=== PATIENT | male | born 1965 | race Caucasian/White ===

== ENCOUNTER → 2016-12-11 | Outpatient (CLI) | payer OTHER ==
[~2016-12-11] MED LIST: LEVAQUIN; NO MEDICATIONS; POTASSIUM CHLO10 ME1
--- NOTE | ~2016-12-11 | US10 ---
[id number] [facility]. [facility] [address] [place], [place] [address] [id number] O MR#: [id number] [facility] #: [id number] NAME: MARILUZ MIMS : 1965 SEX: M STUDY DATE/TIME: 12/11/2016 9:50 UNIT: CNIV ROOM: STUDY DESCRIPTION: US Aorta Complete Attending Physician: Ti Martins M.D. Referring Physician: Ti Martins M.D. Ordering Physician: Ti Martins M.D. Primary Care Physician: Judith Chou M.D. MEDICAL IMAGING REPORT This report is preliminary unless electronic signature is present EXAM Abdominal aortic aneurysm screening 12/11/2016 HISTORY Murmur. FINDINGS The aorta has the following size measurements: proximal 1.5 x 1.48 cm, mid 1.59 x 1.33 cm, distal 1.3 x 1.44 cm. The right common iliac artery measures 0.79 x 0.48 cm, and the left common iliac artery measures 1.17 x 0.74 cm. The aorta has the following velocities: proximal 103 cm/sec, mid 74 cm/sec, distal 80 cm/sec. The right common iliac artery has a velocity of 77 cm/sec, and the left iliac artery 183 cm/sec. IMPRESSION There is no evidence of an infrarenal abdominal aortic aneurysm. There is patent flow seen throughout the aorta and right and left common iliac arteries. STAT * RESULT Dictated by... Ozzie Cadena M.D. THIS IS AN ELECTRONICALLY VERIFIED REPORT Ozzie Cadena M.D. at 12/11/2016 3:10 PM REILLY/latonya TD: 12/11/2016 11:18 JOB #: [id number] MEDICAL IMAGING REPORT COPY
--- NOTE | ~2016-12-11 | US37 ---
[facility] A Service of [facility] & [facility] RADIOLOGY TEXT RESULTS PATIENT: MARILUZ MIMS LOCATION: CNIV : 67 UNIT #: [id number] AGE: [address]: Ti Martins MD SEX: M ORDER DR: [id number] [facility] [address] [place], [place] [address] [id number] O MR#: [id number] [facility] #: [id number] NAME: MARILUZ MIMS : 1965 SEX: M STUDY DATE/TIME: 12/11/2016 9:36 UNIT: CNIV ROOM: STUDY DESCRIPTION: US Carotid W/Doppler Bilateral Attending Physician: Ti Martins M.D. Referring Physician: Ti Martins M.D. Ordering Physician: Ti Martins M.D. Primary Care Physician: Judith Chou M.D. MEDICAL IMAGING REPORT This report is preliminary unless electronic signature is present EXAM Bilateral carotid duplex 12/11/2016 HISTORY Ex-tobacco use, carotid bruit. FINDINGS There is patent flow seen throughout the right common carotid, internal carotid, and external carotid arteries. There is mild but regular appearing plaque seen of the right common carotid artery. There is some regular, heterogeneous plaque seen in the right carotid bifurcation, extending to the external carotid artery. The right common carotid artery has a peak velocity of 86 cm/sec. The right internal carotid artery has a peak systolic/end-diastolic velocities of: proximal 92/26 cm/sec, mid 101/42 cm/sec, distal 91/45 cm/sec. The right external carotid artery peak velocity is 78 cm/sec, and vertebral artery 62 cm/sec. The right ICA:CCA ratio is 1.1. There is patent flow seen throughout the left common carotid, internal carotid, and external carotid arteries. There is some mild atherosclerosis noted of the left common carotid artery, but it appears regular. There is some irregular plaque seen in the left carotid bifurcation. The left common carotid artery peak velocity is 102 cm/sec. The left internal carotid artery peak systolic/end-diastolic velocities are: proximal 74/37 cm/sec, mid 99/46 cm/sec, distal 98/46 cm/sec. The left external carotid artery peak velocity is 68 cm/sec, and vertebral artery 46 cm/sec. The left ICA:CCA ratio is 0.9. IMPRESSION 1. There is minimal to mild atherosclerosis of the carotid arteries, bilaterally, which is not hemodynamically significant by duplex criteria (less than 50%). [facility] A Service of [facility] & [facility] RADIOLOGY TEXT RESULTS PATIENT: MARILUZ MIMS LOCATION: CNIV : 67 UNIT #: [id number] AGE: [address]: Ti Martins MD SEX: M ORDER DR: 2. Vertebral flow is antegrade bilaterally. Dictated by... Ozzie Cadena M.D. THIS IS AN ELECTRONICALLY VERIFIED REPORT Ozzie Cadena M.D. at 12/11/2016 3:11 PM REILLY/latonya TD: 12/11/2016 12:22 JOB #: [id number] MEDICAL IMAGING REPORT COPY
--- NOTE | ~2016-12-11 | HM ---
Unit #: [id number] #: [id number] Patient: MARILUZ MIMS [id number] [address] [address] [id number] O MR#: [id number] NAME: MARILUZ MIMS : 1965 SEX: M STUDY DATE/TIME: 12/11/2016 UNIT: CNIV ROOM: STUDY DESCRIPTION: Attending Physician: Ti Martins M.D. Referring Physician: Ti Martins M.D. Primary Care Physician: Judith Chou M.D. CARDIOLOGY REPORT EXAM 24-hour Holter monitor. DATE APPLIED 12/11/2016 DATE SCANNED 12/14/2016 READ BY [facility] ORDERED BY Ti Martins M.D. REASON FOR STUDY Chest pain/vagal episode. FINDINGS 1. Basic rhythm is normal sinus rhythm, total beats 84,505, average heart rate 59 per minute. Heart rate varies at 42 per minute at 9:54 a.m. to 114 per minute at 11:39 a.m. 2. Thirty five isolated PVCs and one ventricular couplet noted. 3. Sixty three isolated PACs noted. 4. No high-grade AV blocks noted. 5. No diary with the symptoms available. Dictated by... Scar George/merrill TD: 12/16/2016 17:15 JOB #: [id number] Unit #: [id number] #: [id number] Patient: MARILUZ MIMS CARDIOLOGY REPORT X Kris Rivas MD HOLTER MONITOR REPORT
== END | disposition home or self-care (01) ==
LOC: CNIV 08:35
DX: R07.9 Chest pain, unspecified (principal); R55 Syncope and collapse; R01.1 Cardiac murmur, unspecified; R09.89 Other specified symptoms and signs involving the circulatory and respiratory systems; I65.23 Occlusion and stenosis of bilateral carotid arteries
CPT/HCPCS: 76770; 93225; 93226; 93350; 93880

== ENCOUNTER → 2017-06-04 | Outpatient (CLI) | payer OTHER | END | disposition home or self-care (01) | LOC: CECH 11:58 | DX: I50.22 Chronic systolic (congestive) heart failure (principal) | CPT/HCPCS: 93306 ==